=== PATIENT | female | born 1960 | race Caucasian/White ===

== ENCOUNTER 2018-08-04 07:41 | Day surgery (SDC) | payer MEDICARE ==
--- NOTE | 2018-08-03 15:17 | History and Physical - [facility] ---
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 The primary pain is back and leg. Her studies confirmed the both fusion both cervical and lumbar spine. Her treatment history has been extensive conservatively based and unsuccessful. Due to the failure of all therapy, she is here for an implanted spinal catheter infusion trial with Hydromorphone to determine if the implantation of a permanent system can be of any value in pain control. PAST MEDICAL HISTORY: Hypertension, bladder dysfunction, reflux esophagitis, peptic ulcer disease, depression, and difficulty sleeping. PAST SURGICAL HISTORY: Lumbar spinal surgery and cervical spine surgery. MEDICATIONS ON ADMISSION: List to be provided. No blood thinners. ALLERGIES: LIST TO BE PROVIDED. FAMILY/PSYCHOSOCIAL HISTORY: Social history - Noncontributory. Family history - Coronary artery disease, hypertension, and cancer. SYSTEMS REVIEW: The patient is appropriate in no acute distress. PHYSICAL EXAMINATION: Height is 5'6", weight is 200 pounds. No vital signs. HEENT: Within normal limits. LUNGS: Clear. HEART: Rapid and regular. ABDOMEN: Nontender. MUSCULOSKELETAL: Examination of the musculoskeletal system shows the primary area of tenderness to be low back with a bilateral somewhat more left than right leg extension. There are motor and sensory abnormalities with weakness and numbness to the left lower extremity. An assistive device is used for ambulation. NEUROLOGIC: Cranial nerves are intact. IMPRESSION: POST LUMBAR LAMINECTOMY SYNDROME, ICD-10 CODE M96.1 WITH RADICULOPATHY, ICD-10 CODE M54.16 AND M54.17. PLAN: The patient is here for an implanted spinal catheter infusion trial of Hydromorphone to determine if the implantation of a permanent system can be of any value in pain control. The procedure was carefully reviewed and discussed with the patient in detail. Information from the recruiting coordinator including a CD- ROM and direct contact with a clinical specialist was provided. The potential complications of spinal paralysis, nerve root injury, and spinal headache were reviewed and discussed. The procedure will involve an incision with implanting of the spinal catheter, an epidural blood patch will be performed as a prophylactic measure against spinal headache. The procedure can be considered outpatient, although an overnight stay will be evaluated. Dressings holding the external component of the external system and internal catheter elements have been reviews and discussed. The dressing will be need to stay clean and dry, no showering or bathing. A series of three of increases will be scheduled during the two week trial period. At the end of the trial period or two weeks we will either implant the full device leaving the catheter in place or remove the implanted catheter. The patient understands all of these ramifications and potential outcomes. JOB NUMBER: [id number] MTDD
[~2018-08-04 07:41] MED LIST: ACETAMINOPHEN 1,000 MG/100 ML BTL IV ONE; CEFAZOLIN 2 Gram 2 GM/50 ML BAG IVPB ONE; FAMOTIDINE 20MG TABLET PO ONE; HYDROMORPHONE PF 2MG/ML AMP 0.008 MG in 0.9 % SODIUM CHLORIDE 10ML VIA 0.996 ML IV ONE; HYDROMORPHONE PF 2MG/ML AMP 8 MG in 0.9 % SODIUM CHLORIDE 500ML 496 ML IV ONE; METOCLOPRAMIDE 10 MG TABLET PO ONE; SCOPOLAMINE 1 PATCH TDSY TD ONE
[2018-08-04] MEDS ORDERED: BUPIVACAINE 0.5% W/EPI MPF 30 ML VIAL IVP ONE (07:42)
[2018-08-04] MEDS ORDERED: PROPOFOL 10 MG/ML VIAL IV ONE (07:42)
[2018-08-04] MEDS ORDERED: LIDOCAINE 2% MDV (20MG/ML) 20ML VIAL IV ONE (07:42)
[2018-08-04] MEDS ORDERED: LIDOCAINE 1% W/EPI 1:200,000 MPF 30ML SQ ONE (07:42)
[2018-08-04] MEDS ORDERED: FENTANYL PF 100MCG/2ML VIAL IV ONE (07:42)
[2018-08-04] MEDS ORDERED: 0.9 % SODIUM CHLORIDE 10 ML VIAL IVP ONE (07:42)
[2018-08-04] MEDS ORDERED: CEFAZOLIN 1G VIAL IM ONE (07:42)
[2018-08-04] MEDS ORDERED: MIDAZOLAM HCL 2MG/2ML VIAL IV ONE (07:42)
[2018-08-04] MEDS ORDERED: AL HYDROX/MAG HYDROX 30ML UD PO PRN (11:18)
[2018-08-04] MEDS ORDERED: ACETAMINOPHEN 325 MG TAB PO PRN ×2 (11:18)
[2018-08-04] MEDS ORDERED: HYDROMORPHONE HCL 2 MG/ML VIAL IM PRN ×2 (11:18)
[2018-08-04] MEDS ORDERED: METOCLOPRAMIDE HCL 10 MG/2 ML VIAL IVP PRN (11:18)
[2018-08-04] MEDS ORDERED: HYDROCODONE/APAP 7.5/325MG TABLET PO PRN ×2 (11:18)
[2018-08-04] MEDS ORDERED: OXYCODONE/APAP 10MG-325MG TABLET PO PRN (11:18)
[2018-08-04] MEDS ORDERED: METOCLOPRAMIDE 10 MG TABLET PO PRN (11:18)
[2018-08-04] MEDS ORDERED: DIPHENHYDRAMINE HCL 25 MG CAPSULE PO PRN ×2 (11:18)
[2018-08-04] MEDS ORDERED: SENNOSIDES/DOCUSATE SODIUM UD CAPSULE PO PRN ×2 (11:18)
[2018-08-04] MEDS ORDERED: NALOXONE 0.4 MG/1 ML VIAL IVP PRN (11:18)
[2018-08-04] MEDS ORDERED: DIPHENHYDRAMINE HCL 50 MG/ML VIAL IVP PRN ×2 (11:18)
[2018-08-04] MEDS ORDERED: TEMAZEPAM 15 MG CAPSULE PO PRN ×2 (11:18)
[2018-08-04] MEDS: RINGERS SOLUTION,LACTATED 1,000 ML IV SCH (12:11)
[2018-08-04] MEDS ORDERED: CYCLOBENZAPRINE 10MG TABLET PO PRN (12:39)
[2018-08-04] MEDS ORDERED: BUSPIRONE 5 MG TABLET PO PRN (12:39)
[2018-08-04] MEDS: OXYCODONE/APAP 10MG-325MG TABLET PO PRN (14:21)
[2018-08-04] MEDS: CEFAZOLIN 2 Gram 2 GM/50 ML BAG IVPB SCH (17:19)
[2018-08-04] MEDS ORDERED: BUPROPION HCL 150 MG TAB.SR.12H PO SCH (22:00)
[2018-08-04] MEDS ORDERED: LISINOPRIL 10 MG TABLET PO SCH (22:00)
[2018-08-04] MEDS ORDERED: HYDROCHLOROTHIAZIDE 12.5 MG CAPSULE PO SCH (22:00)
[2018-08-05] MEDS: RINGERS SOLUTION,LACTATED 1,000 ML IV SCH ×3 (02:00→13:11)
[2018-08-05] MEDS: CEFAZOLIN 2 Gram 2 GM/50 ML BAG IVPB SCH ×2 (02:00→09:24)
[2018-08-05] MEDS: OXYCODONE/APAP 10MG-325MG TABLET PO PRN (06:39)
--- NOTE | 2018-08-05 07:04 | Operative Note ---
DATE: 08/04/2018. PRIMARY CARE PHYSICIAN: Michelle Leyva M.D. PREOPERATIVE DIAGNOSIS: 1. POSTLUMBAR LAMINECTOMY SYNDROME, ICD-10 CODE M96.1. 2. RADICULOPATHY, ICD-10 CODE M54.16 AND M54.17. PROCEDURES: 1. Fluoroscopically guided access spinal space at L2-3. Placement of thin- walled spinal catheter at T12. 2. Diagnostic myelography with radiologic supervision and interpretation. 3. Spinal opioid bolus of hydromorphone 0.004 mg into the spinal space. 4. Incision, subcutaneous dissection, and anchoring of spinal catheter to supraspinous fascia with an anchor and nonabsorbable suture. 5. Incision, subcutaneous dissection, and creation of subcutaneous pouch at the left posterior gluteal margin for placement of interface for the catheter. 6. Tunneling between midline spinal pouch and posterior gluteal pouch, extending spinal catheter into the pouch. Spinal catheter interfaced with second catheter component by way of connector. 7. Tunneling of second catheter component 6.0 cm superior to the posterior pouch exiting the skin. 8. Interface external catheter to external pump with the pump set to deliver hydromorphone at 0.08 mg per day. 9. Closure of midline incision with Stratafix suture; #2-0 for the fascia and # 3-0 for the skin. Dermabond closure. 10. Closure of left posterior gluteal margin pouch with running nylon. 11. Evaluation for epidural blood patch identified no access. Epidural blood patch not performed. 12. Sterile dressings placed securing catheter and all connections under sterile dressing. 13. Patient transported to the recovery room stable and flat with a pillow under the head and knees, showing no unusual side effects and no complaints of unusual pain. Full functionality of extremities. SURGEON: Benigno Velasquez D.O. ANESTHESIA: Local sedation. ANESTHESIA PROVIDER: Damaso Hall CRNA INDICATIONS: This patient presents with a history of a postlumbar laminectomy radiculopathy. Due to the failure of all therapies, she is here for a spinal opioid infusion trial with hydromorphone to determine if the implantation of a permanent system can be of any value in pain control. DESCRIPTION OF PROCEDURE: Intravenous lines, vital sign monitoring, and intravenous sedation. Prepped and draped with sterile technique with the patient positioned prone. The spinal interspace at L3-4 was marked and infiltrated. A 20-gauge spinal needle was unsuccessful in gaining access to the spinal space at 3-4 because of extensive arthritic change. No cerebrospinal fluid was noted and no dural puncture was noted. Moving up to L2-3, the skin was infiltrated. A 20-gauge spinal needle, beveled with the long access with a paramedian approach was placed into the spinal space using AP and lateral imaging. With cerebrospinal fluid flow, a thin- walled spinal catheter was advanced and positioned at T12. Cerebrospinal fluid was noted through the catheter, and the catheter was clamped. The skin above and below the needle was infiltrated. An incision was made and subcutaneous dissection was conducted to the supraspinous fascia. The needle was removed, and then the catheter was anchored to the supraspinous fascia with an anchor and nonabsorbable suture. Cerebrospinal fluid was still noted through the catheter, and the catheter was clamped. Diagnostic myelography was performed. The flow characteristics were smooth and linear in the space. Contrast was injected through the catheter. The catheter tip was identified at T12 with appropriate flow characteristics noted. There was no unusual catheter position. She had no complaints of pain or unusual findings on injection. A bolus of hydromorphone was then injected into the space with catheter position confirmed, 0.004 mg. The catheter was clamped with cerebrospinal fluid still noted. At the left posterior gluteal margin, the site picked by the patient ultimately for the pump, the skin was infiltrated. An incision was made and subcutaneous dissection was conducted to form a small pouch. The spinal catheter was then tunneled into the posterior pouch. The catheter was then interfaced with the second catheter component by way of connector which was tunneled 6.0 cm superior exiting the skin. This external catheter was then interfaced to an external pump which was programmed to deliver hydromorphone at 0.08 mg a day. The midline incision was then closed using Stratafix suture; #2-0 for the fascia and #3-0 for the skin. The left posterior gluteal pouch incision was closed with running nylon. Dressings were placed to secure the catheter and all connections under sterile dressing. The possibility of requiring a blood patch was evaluated but felt not to be appropriate; nor could it be performed due to lack of access. The patient was then transported to the recovery room stable and flat with a pillow under the head and knees. Full functionality of the extremities was noted. The patient had no unusual complaints of pain. She will be kept flat for four hours and then slowly elevated for one hour. She will be kept overnight for observation and will be discharged in the morning. DISCHARGE INSTRUCTIONS: 1. The sites are to remain clean and dry. No showering or bathing in any way that would disrupt dressings. If this happens, contact the clinic. 2. Standard medications to be resumed including the antibiotic Levaquin 500 mg once a day for 14 days. 3. the office is to contact the patient at home. We will set up the first increase of the spinal infusion within the next three to five days. A total of three possible increases will be conducted in the office over the next two weeks. 4. All other instructions were provided including numbers to contact with problems. 5. Potential opioid side effects including respiratory depression, nausea, vomiting, constipation, urinary retention, lightheadedness, and rash have all been discussed and reviewed. JOB NUMBER: [id number] cc: Elin Lafleur
--- NOTE | 2018-08-05 14:53 | RADIOLOGY REPORT ---
EXAM: AP THORACOLUMBAR SPINE HISTORY: POST PAIN PUMP TRIAL. TECHNIQUE: A single AP view of the thoracolumbar spine from about the level of the T5 vertebra down to the upper sacrum. Comparison: No prior spine series with which to compare. FINDINGS: There is a tiny faint rounded metallic dot like density overlying the body of what is presumably T12 slightly to the right of midline. This presumably represents the superior extent of a pain pump catheter. Faint density overlying the lower lumbar and upper sacral spine in the midline may be residual contrast media in the spinal canal. Postop changes partially seen overlying the lower lumbar and upper sacral spine bilaterally probably representing a posterior fusion. Multilevel degenerative change in the lumbar spine and some prominent spurring in the thoracic spine. Tilting of the spine to the left may be due to positioning or spasm. IMPRESSION: 1. THE TIP OF THE PAIN PUMP CATHETER IS PROBABLY OVERLYING THE RIGHT SIDE OF THE BODY OF T12 DESCRIBED ABOVE. 2. POSTOP CHANGES FROM L4 DOWN INTO THE UPPER SACRUM VISUALIZED, LIKELY POSTERIOR FUSION. JOB NUMBER: [id number] [facility]
== END 2018-08-05 14:15 | disposition home or self-care (01) ==
LOC: SUR 07:41 → MEDSURG 11:55 → SUR 08-05 14:15
PROVIDERS: ATTEND Pain Medicine Interventional Pain Medicine
DX: M96.1 Postlaminectomy syndrome, not elsewhere classified (principal); M54.16 Radiculopathy, lumbar region; M54.17 Radiculopathy, lumbosacral region; I10 Essential (primary) hypertension
CPT/HCPCS: 62350; 62362; 01936; 85002; 72020; Q9967; J3490 ×2; J3010; J0690 ×2; J1170; J7040; J7120

== ENCOUNTER 2018-08-25 13:05 | Day surgery (SDC) | payer MEDICARE ==
--- NOTE | 2018-08-25 07:26 | History and Physical - [facility] ---
CHIEF COMPLAINT/HISTORY OF CHIEF COMPLAINT: This patient with an ongoing implanted spinal catheter infusion trial using Hydromorphone presents for permanent implantation. The pattern of pain is an intractable post lumbar laminectomy radiculopathy. The spinal infusion trial is resulting in 75-85% pain control. Due to the failure of therapy and the success of the trial, the patient is presenting today for permanent implantation. PAST MEDICAL HISTORY: Unchanged. PAST SURGICAL HISTORY: Unchanged. MEDICATIONS ON ADMISSION: List to be provided. ALLERGIES: Unchanged. FAMILY/PSYCHOSOCIAL HISTORY: Social history - Unchanged PHYSICAL EXAMINATION: Height is 5'6", weight is 200 pounds. Vital signs are not available. HEENT: Within normal limits. LUNGS: Clear. HEART: Rapid and regular. ABDOMEN: Nontender. MUSCULOSKELETAL: Examination of the musculoskeletal system shows a dressing in place for the implanted catheter trial. The external pump is infusing. Chronic pain pattern is low back with a lower extremity extension. There are motor and sensory abnormalities into the left lower extremity. NEUROLOGIC: Cranial nerves are intact. IMPRESSION: 1. POST LUMBAR LAMINECTOMY SYNDROME, ICD-10 CODE M96.1 WITH RADICULOPATHY, ICD- 10 CODE M54.16 AND M54.17. 2. IMPLANTED SPINAL CATHETER INFUSION TRIAL USING HYDROMORPHONE. PLAN: The patient is here for permanent implantation of a spinal infusion system or device due to the successful trial and the failure of other therapies , the procedure will be considered outpatient, although an overnight stay will be evaluated. JOB NUMBER: [id number] MTDD
[~2018-08-25 13:05] MED LIST changes: +HYDROMORPHONE HCL 0.04 GM in 0.9 % SODIUM CHLORIDE 10ML VIA 20 ML IV ONE; -HYDROMORPHONE PF 2MG/ML AMP 8 MG in 0.9 % SODIUM CHLORIDE 500ML 496 ML IV ONE
[2018-08-25] MEDS ORDERED: PROPOFOL 10 MG/ML VIAL IV ONE (13:06)
[2018-08-25] MEDS ORDERED: BUPIVACAINE 0.5% W/EPI MPF 30 ML VIAL IVP ONE (13:06)
[2018-08-25] MEDS ORDERED: LIDOCAINE 2% MDV (20MG/ML) 20ML VIAL IV ONE (13:06)
[2018-08-25] MEDS ORDERED: MIDAZOLAM HCL 2MG/2ML VIAL IV ONE (13:06)
[2018-08-25] MEDS ORDERED: 0.9 % SODIUM CHLORIDE 10 ML VIAL IVP ONE (13:06)
[2018-08-25] MEDS ORDERED: FENTANYL PF 100MCG/2ML VIAL IV ONE (13:06)
[2018-08-25] MEDS ORDERED: KETAMINE HCL 100MG/1ML VIAL INJ ONE (13:06)
[2018-08-25] MEDS ORDERED: CEFAZOLIN 1G VIAL IM ONE (13:06)
[2018-08-25] MEDS ORDERED: LIDOCAINE 1% W/EPI 1:200,000 MPF 30ML SQ ONE (13:06)
--- NOTE | 2018-08-26 20:59 | Operative Note ---
DATE OF SURGERY: 08/25/2018. PREOPERATIVE DIAGNOSES: 1. POST LUMBAR LAMINECTOMY SYNDROME, ICD-10 CODE = M96.1 WITH RADICULOPATHY, ICD-10 CODE = M54.16 AND M54.17. 2. IMPLANTED SPINAL CATHETER INFUSION TRIAL HYDROMORPHONE. SURGERY: 1. FLUOROSCOPIC-GUIDED INCISION, SUBCUTANEOUS DISSECTION, AND FORMATION OF SUBCUTANEOUS POUCH LEFT FLANK FOR PLACEMENT OF PUMP, 20 ML PROGRAMMABLE MEDTRONIC, A SITE PICKED BY THE PATIENT. 2. INCISION, SUBCUTANEOUS DISSECTION, AND REMOVAL OF EXTERNAL SPINAL CATHETER. 3. REVISION INTERNAL CATHETER, PERMANENT, REVISED, RESECTED AND CONNECTED TO SECOND CATHETER COMPONENT BY WAY OF CONNECTOR FOR INTERFACE TO PUMP. 4. PLACEMENT OF 20 ML PROGRAMMABLE PUMP MEDTRONIC, PRE-FILLED HYDROMORPHONE 1 MG PER ML ONTO FIELD AND INTERFACED WITH REVISED CATHETER. 5. PLACEMENT OF PUMP AND REVISED CATHETER COMBINATION INTO LEFT FLANK POUCH SECURING TO POSTERIOR FASCIA WITH NONABSORBABLE SUTURE, THREE-POINT PUMP EYELETS. 6. PLACEMENT OF CURVED #24 GAUGE TIPTON NEEDLE INTO ACCESS PORT OF PROGRAMMABLE PUMP, ASPIRATION AND CLEARING OF CATHETER CONTENTS OF OPIOID AND CSF MIXTURE. 7. DIAGNOSTIC MYELOGRAPHY THROUGH ACCESS PORT WITH RADIOLOGIC SUPERVISION AND INTERPRETATION CONFIRMING INTEGRITY AND FUNCTIONALITY OF THE SYSTEM. 8. CLOSURE OF INCISION USING STRATAFIX SUTURE, #2-0 FASCIA, #3-0 SKIN. DERMABOND CLOSURE. 9. PROGRAMMING OF PUMP TO DELIVER BY CONTINUOUS INFUSION HYDROMORPHONE AT 0.2 MG PER DAY. SURGEON: JORGE MAHAJAN D.O. ANESTHESIA: LOCAL SEDATION. ANESTHESIA PROVIDER: RICH THOMASON CRNA. INDICATIONS: This patient presents with a history of a post lumbar laminectomy radiculopathy. Due to the failure of therapy, an implanted spinal catheter infusion trial of Hydromorphone was conducted. Due to the failure of all other therapies and the success of the trial, She presented today for implantation of a permanent system. PROCEDURE: Intravenous line, vital sign monitoring, IV sedation, prepped draped sterile technique, Anesthesia providing sedation, patient positioned prone. Sterile prep, sterile technique. A previous site at the left flank marked , infiltrated with local, incision made and subcutaneous dissection was conducted to form a pouch of suitable size and depth for the pump identified as a Medtronic 20 mL programmable. The interface between the permanent internal catheter and the external catheter was clamped, cut and the external catheter was removed by pulling away from the incision. The permanent internal catheter was then revised and resected and interfaced with a second catheter component by way of connector. This second catheter component was then interfaced to pump. A Medtronic 20 mL programmable pump pre-filled with Hydromorphone placed onto the field and interfaced with revised catheter. Antibiotic irrigation and Bovie for hemostasis. The pump was placed into the pouch and secured to the posterior fascia with nonabsorbable suture at three points, pump eyelets. With the pump in the pouch, a #24 gauge Tipton needle was inserted into the access port and 1 mL of catheter contents was aspirated clearing the catheter of opioid and CSF mixture. Diagnostic myelography was then performed through the access port. The resulting flow characteristics were smooth and linear showing the pump/catheter connection, no kinks, bends, or leaks. The catheter tip at T11 identified with appropriate flow characteristics noted. Functionality was then confirmed. The incision was then closed using STRATAFIX suture, #2-0 fascia , #3-0 skin. Dermabond closure approximating the edges of the wound. The pump was then programmed to deliver by continuous infusion Hydromorphone at 0.2 mg a day. She was transported to the Recovery Room stable with no side effects from the procedure or the sedation. When fully awake and alert, complex evaluation was then performed confirming the program settings. She was monitored until stable and then prepared for discharge. DISCHARGE INSTRUCTIONS: 1. The site is to remain clean and dry, although the Dermabond will allow showing, she should not sit in water. 2. Standard medications will be resumed including his Levaquin the antibiotic she will continue for 7 more days, 500 mg once a day. 3. Spinal opioid side effects of respiratory depression, nausea, vomiting, constipation, urinary retention, light headedness or rash have all been discussed and reviewed. If it happens, contact the clinic. 4. All other instructions provided, numbers to contact if problems were given. She will be seen in the office in 7 to 10 days. Until then she is to keep her activities controlled. Limit bend, lift, push, pull. cc: Dr. Michelle Leyva JOB NUMBER: [id number] MTDD
== END 2018-08-25 16:38 | disposition home or self-care (01) ==
LOC: SUR 13:05
PROVIDERS: ATTEND Pain Medicine Interventional Pain Medicine
DX: M96.1 Postlaminectomy syndrome, not elsewhere classified (principal); M54.16 Radiculopathy, lumbar region; M54.17 Radiculopathy, lumbosacral region; I10 Essential (primary) hypertension
CPT/HCPCS: 62350; 62362; 01936; 62367; J3010; J0690; J1170; J3490; C1755